=== PATIENT | female | born 1995 | race African-American/Black ===

== ENCOUNTER 2021-06-04 19:27 | Emergency (ER) | payer OTHER, SELFPAY ==
--- NOTE | ~2021-06-04 | CT_ITS ---
EXAMINATION: CT brain wo con DATE: 06/04/2021 22:08 INDICATION: Head injury. TECHNIQUE: Computed tomography (CT) of the head was performed without intravenous contrast. The mA wa s adjusted according to patient size. Iterative reconstruction technique was employed. The dose-lengt h product was 605.33 mGy-cm. COMPARISON: None FINDINGS: There is no intracranial hemorrhage, acute infarction, or abnormal intracranial mass lesion . The ventricles are normal in size. The paranasal sinuses are clear. The mastoid air cells are otilia l. The orbits are normal. IMPRESSION: 1. Normal brain. Reviewed, dictated and finalized at location A. IMPRESSION: 1. Normal brain.
--- NOTE | ~2021-06-04 | XR_ITS ---
EXAMINATION: XR hand RT min 3V DATE: 06/04/2021 22:10 INDICATION: Right hand pain. TECHNIQUE: 3 views of right hand were obtained. COMPARISON: None. FINDINGS: Bone alignment is normal. No acute fracture. There is an old healed fracture of diaphysis o f fifth metacarpal. Joint spaces are normal. IMPRESSION: 1. No acute fracture. Reviewed, dictated and finalized at location A. IMPRESSION: 1. No acute fracture.
[2021-06-04 19:56] VITALS: BP 139/97; PULSE 82; RESP 18; TEMP 36.3; O2SAT 100
[2021-06-04 20:59] VITALS: BP 145/86; PULSE 86; RESP 18; TEMP 36.3; O2SAT 100
--- NOTE | 2021-06-04 21:29 | ED.HEATRA ---
HPI - Head Injury General Chief complaint: Head Injury Stated complaint: Ground level fall. Cheek injury Time Seen by Provider: 06/04/21 21:16 Source: patient Mode of arrival: ambulatory Limitations: no limitations History of Present Illness HPI Narrative: Patient is a 26-year-old previously healthy female presenting for evaluation of right-sided headache pain. 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 When she hit her head it caused her to lose her balance, falling from approximately 2-1/2 feet onto the ground. She did hit her head when she fell. She denies loss of consciousness. She has been ambulatory. She reports mild pain in her right hand. She reports mild right-sided headache pain. She denies vision changes, nausea, vomiting. No chest or abdominal pain. No neck pain, mid or lower back pain. Patient denies any focal weakness or numbness. Related Data Allergies Allergy/AdvReac Type Severity Reaction Status Date / Time No Known Allergies Allergy Verified 06/04/21 21:04 Review of Systems Review of Systems: CONSTITUTIONAL: Denies fever, chills, or sweats. EYES: Denies visual changes, redness, or discharge. ENT: Denies rhinorrhea, congestion, sore throat, or otalgia. CARDIOVASCULAR: Denies chest pain, palpitations, or edema. RESPIRATORY: Denies cough or dyspnea. GASTROINTESTINAL: Denies abdominal pain, nausea, vomiting, or diarrhea. GENITOURINARY: Denies dysuria or hematuria. SKIN: Denies rash or itching. MUSCULOSKELETAL: Denies back pain, joint pain, or myalgia. Reports right hand pain. NEUROLOGIC: Reports headache without numbness, or weakness. REPLACED BY [facility] Social History Social History (Updated 06/04/21 @ 21:49 by Darlyn Hunter MD) Smoking status: Never smoker Alcohol intake: never Substance use: never Living arrangements: with family Gender identity (if verbalized by the patient): Female Exam Narrative: Nursing note and vitals reviewed. CONSTITUTIONAL: The patient appears well-developed and well-nourished. No distress. HEAD: Normocephalic, right forehead contusion, no laceration, no significant hematoma EYES: PERRL, EOMI, normal conjunctiva, anicteric EARS: External ears clear bilaterally, no hemotympanum MOUTH: OP clear, no erythema, exudates NECK: midline trachea, supple, FROM. No midline cervical spinal tenderness. CARDIOVASCULAR: Normal rate, regular rhythm, normal heart sounds and intact distal pulses. No murmurs, rubs, gallops. PULMONARY: Effort normal and breath sounds normal. No respiratory distress. The patient has no wheezes, rales, ronchi. No chest wall tenderness, crepitus or ecchymoses. ABDOMINAL: Soft. Nontender, nondistended. No palpable masses EXTREMITIES:: moving all extremities symmetrically. -RUE: No deformity. Normal ROM at shoulder, elbow, wrist, and hand. Sensation intact M/U/R. Pulse 2+. -LUE: No deformity. Normal ROM at shoulder, elbow, wrist, and hand., Sensation intact M/U/R. Pulse 2+ -RLE: No deformity. Normal ROM at hip, knee, ankle. Sensation intact distally. -LLE: No deformity. Normal ROM at hip, knee, ankle. Sensation intact distally. NEUROLOGY: The patient is alert and oriented to person, place, and time. CN II-XII. Finger to nose intact bilaterally. EOMs intact without nystagmus. No facial droop/asymmetry noted bilaterally. Grimace intact. Intact sensation in face. Hearing intact bilaterally. Shoulder shrug intact. Strength 5/5 bilateral upper extremities. Strength 5/5 bilateral lower extremities. Reflexes 2+ patellar. Heel to gloria intact bilaterally. Ambulatory with a narrow base, steady gait, no ataxia. Course Vital Signs Vital signs: Vital Signs Temperature 36.3 C L 06/04/21 19:56 Pulse Rate 82 06/04/21 19:56 Respiratory Rate 18 06/04/21 19:56 Blood Pressure 139/97 H 06/04/21 19:56 Pulse Oximetry 100 06/04/21 19:56 Temperature 36.3 C L 06/04/21 20:59 Pulse Rate 86 06/04/21 20:
[2021-06-04] MEDS: ACETAMINOPHEN 500 MG TABLET 1000 MG PO (22:33)
[2021-06-04 22:40] VITALS: BP 129/83; PULSE 85; RESP 16; TEMP 36.5; O2SAT 100
== END 2021-06-04 22:40 | disposition home or self-care (01) ==
PROVIDERS: Emergency Provider Emergency Medicine; PCP Physician Assistant
DX: S06.0X0A Concussion without loss of consciousness, initial encounter (principal); W24.0XXA Contact with lifting devices, not elsewhere classified, initial encounter
CPT/HCPCS: 70450; 73130; 99284; A9270